=== PATIENT | male | born 2000 | race Caucasian/White ===

== ENCOUNTER 2025-05-03 00:47 | Emergency (ER) | payer BC ==
[~2025-05-03] VITALS: Ht 182.9 cm; Wt 145.0 kg
[2025-05-03 01:11] VITALS: O2SAT 100
[2025-05-03] MEDS ORDERED: TETANUS, DIPHTHERIA, PERTUSSIS VAC/PF 0.5ML (>10YR OLD) IM ONE (01:15)
[2025-05-03] MEDS ORDERED: IBUPROFEN 600MG TABLET PO ONE (01:15)
[2025-05-03] MEDS ORDERED: BACITRACIN ZINC OINT UDPKT TOP ONE (01:15)
[2025-05-03] MEDS ORDERED: AMOX1TAB16 MT (01:23)
[2025-05-03] MEDS ORDERED: IBUP-2029 MT (01:23)
[2025-05-03] MEDS ORDERED: BO1 TP (01:23)
[2025-05-03] MEDS: BACITRACIN ZINC OINT UDPKT TOP NR (03:15)
[2025-05-03] MEDS: TETANUS, DIPHTHERIA, PERTUSSIS VAC/PF 0.5ML (>10YR OLD) IM ONE (03:15)
[2025-05-03] MEDS: IBUPROFEN 600MG TABLET PO NR (03:16)
[2025-05-03 03:35] VITALS: BP 163/98; PULSE 99; RESP 18; TEMP 36.9; O2SAT 100
== END 2025-05-03 03:38 | disposition home or self-care (01) ==
LOC: ER 00:58
DX: S61.259A Open bite of unspecified finger without damage to nail, initial encounter (principal); R03.0 Elevated blood-pressure reading, without diagnosis of hypertension; W54.0XXA Bitten by dog, initial encounter; Y93.89 Activity, other specified; Y92.89 Other specified places as the place of occurrence of the external cause; Y99.8 Other external cause status
CPT/HCPCS: 90471; 90715; 99283